=== PATIENT | male | born 1955 | race Hispanic/Latino ===

== ENCOUNTER 2021-08-03 10:50 | Emergency (ER) | payer MEDICARE ==
[~2021-08-03] VITALS: Ht 167.6 cm; Wt 83.9 kg
[2021-08-03] MEDS ORDERED: CLONIDINE HCL 0.2 MG TAB PO ONE (12:45)
[2021-08-03 15:11] VITALS: BP 190/92
== END 2021-08-03 15:19 | disposition home or self-care (01) ==
LOC: ER 11:09
DX: I10 Essential (primary) hypertension (principal); E11.9 Type 2 diabetes mellitus without complications; E78.5 Hyperlipidemia, unspecified; I50.9 Heart failure, unspecified
CPT/HCPCS: 99282